=== PATIENT | male | born 1945 | race Two or more races ===

== ENCOUNTER 2021-07-09 17:20 | Inpatient (IN) | payer OTHER ==
[~2021-07-09] VITALS: Ht 152.4 cm; Wt 52.2 kg
[2021-07-09] MEDS ORDERED: AVAPRO300 MG PO (17:29)
[2021-07-09] MEDS ORDERED: TOPROL XL100 M1 PO (17:30)
[2021-07-09] MEDS ORDERED: SYNTHROID175 MCG PO (17:30)
[2021-08-26] MEDS ORDERED: LEVOTHYROXINE200 MCG PO (13:49)
[2021-08-26] MEDS ORDERED: LEVETIRACE100 MG/1 M PO (13:49)
[2021-08-26] MEDS ORDERED: FAMOTIDINE20 MG PO (13:49)
[2021-08-26] MEDS ORDERED: B COMPLEX1 EACH PO (13:49)
[2021-08-26] MEDS ORDERED: THIAMINE HCL100 MG PO (13:49)
[2021-08-26] MEDS ORDERED: VALPROIC A250 MG/5 M PO (13:49)
[2021-08-26] MEDS ORDERED: INTESTINEX680 M1 PO (13:49)
[2021-08-26] MEDS ORDERED: INTEGRA F CAPS1 EACH PO (13:49)
[2021-08-26] MEDS ORDERED: MAGNESIUM CHLOR70 MG PO (13:49)
[2021-08-26] MEDS ORDERED: PROTEINEX-18 LI30 ML NGT (13:49)
== END 2021-08-26 16:32 | disposition home or self-care (01) | DRG 3 ==
LOC: ER 17:20 → ICU 22:51 → SURH 22:51 → ICU 07-19 22:13
PROVIDERS: ADMIT Colon & Rectal Surgery; ATTEND Colon & Rectal Surgery
PROC: CW1N1ZZ Planar Nuclear Medicine Imaging of Whole Body using Technetium 99m (Tc-99m) (ICD-10-PCS; 2021-07-13)
PROC: 0DJD8ZZ Inspection of Lower Intestinal Tract, Via Natural or Artificial Opening Endoscopic (ICD-10-PCS; 2021-07-15)
PROC: 4A12X45 Monitoring of Cardiac Electrical Activity, Ambulatory, External Approach (ICD-10-PCS; 2021-07-15)
PROC: 07BC4ZZ Excision of Pelvis Lymphatic, Percutaneous Endoscopic Approach (ICD-10-PCS; 2021-07-16)
PROC: 4A1BXSH Monitoring of Gastrointestinal Vascular Perfusion using Indocyanine Green Dye, External Approach (ICD-10-PCS; 2021-07-16)
PROC: 0DTF4ZZ Resection of Right Large Intestine, Percutaneous Endoscopic Approach (ICD-10-PCS; principal; 2021-07-16 07:00)
PROC: 02HV33Z Insertion of Infusion Device into Superior Vena Cava, Percutaneous Approach (ICD-10-PCS; 2021-07-19)
PROC: 5A1955Z Respiratory Ventilation, Greater than 96 Consecutive Hours (ICD-10-PCS; 2021-07-23)
PROC: 0BH17EZ Insertion of Endotracheal Airway into Trachea, Via Natural or Artificial Opening (ICD-10-PCS; 2021-07-23)
PROC: 30243N1 Transfusion of Nonautologous Red Blood Cells into Central Vein, Percutaneous Approach (ICD-10-PCS; 2021-08-02)
PROC: 0B113F4 Bypass Trachea to Cutaneous with Tracheostomy Device, Percutaneous Approach (ICD-10-PCS; 2021-08-07)
PROC: 0DH63UZ Insertion of Feeding Device into Stomach, Percutaneous Approach (ICD-10-PCS; 2021-08-07)
DX: D12.0 Benign neoplasm of cecum (principal); J96.01 Acute respiratory failure with hypoxia; E51.2 Wernicke's encephalopathy; R47.01 Aphasia; Z68.1 Body mass index [BMI] 19.9 or less, adult; C79.51 Secondary malignant neoplasm of bone; F05 Delirium due to known physiological condition; E46 Unspecified protein-calorie malnutrition; C61 Malignant neoplasm of prostate; I95.81 Postprocedural hypotension; N40.0 Benign prostatic hyperplasia without lower urinary tract symptoms; R59.0 Localized enlarged lymph nodes; I11.9 Hypertensive heart disease without heart failure; I48.0 Paroxysmal atrial fibrillation; I25.10 Atherosclerotic heart disease of native coronary artery without angina pectoris; E03.9 Hypothyroidism, unspecified; Z95.1 Presence of aortocoronary bypass graft